=== PATIENT | male | born 1950 | race African-American/Black ===

== ENCOUNTER 2022-08-29 09:03 | Emergency (ER) | payer OTHER ==
[2022-08-29 10:13] LABS: #Eosinphils 0.2 10x3/uL (0.0-0.5); #Monocytes 0.4 10x3/uL (0.0-1.1); #Neutrophils 2.3 10x3/uL (1.5-8.4); %Basophils 0.5 % (0.0-2.0); %Eosinophils 4.4 % (0.0-6.0); %Lymphocytes 31.3 % (18.0-47.0); %Monocytes 9.6 % (0.0-10.0); Hemoglobin 6.4 g/dL (13.5-17.5); Mean Corpuscular HGB CONC 28.6 g/dL (32.0-36.0); Mean Corpuscular Hemoglobin 18.9 pg (27.0-33.0); Mean Corpuscular Volume 66.3 fl (81.2-95.1); Platelet Count 153 10x3/uL (150-450); RBC Distribution Width 18.2 % (11.5-14.5); Red Blood Cell (RBC) Count 3.38 10x6/uL (4.32-5.72); White Blood Cell (WBC) Count 4.3 10x3/uL (3.5-10.5)
[2022-08-29 10:24] LABS: ALT (SGPT) 32 U/L (8-55); AST (SGOT) 25 U/L (5-34); Albumin 3.1 g/dL (3.4-4.8); Alkaline Phosphatase 70 U/L (40-110); Anion Gap 11 mmol/L (10-20); BUN (Urea Nitrogen) 19 mg/dL (8.4-25.7); Bilirubin, Total 0.2 mg/dL (0.2-1.2); Calc. Creatinine Clearance 0 mL/min (70-130); Calcium 8.3 mg/dL (7.8-10.44); Carbon Dioxide 24 mmol/L (23-31); Chloride 108 mmol/L (98-107); Estimated GFR 49; Globulin 4.5 g/dL (2.4-3.5); Glucose 115 mg/dL (83-110); Protein, Total 7.6 g/dL (5.8-8.1); Sodium 139 mmol/L (136-145)
[2022-08-29 10:37] LABS: Microcytosis MODERATE=15-30 cells (100X) (0-5/hpf)
[2022-08-29 10:39] LABS: Hypochromia SLIGHT = 6-15 cells (100X) (0-5/hpf)
[2022-08-29 10:40] LABS: Ovalocytes SLIGHT = 2-5 cells (100X) (0-1/hpf); PTT 25.6 sec (22.0-33.0); Prothrombin Time 10.9 sec (9.5-12.1)
[2022-08-29 10:41] LABS: Macrocytosis SLIGHT = 6-15 cells (100X) (0-5/hpf); Polychromasia SLIGHT = 2-3 cells (100X) (0-2/hpf)
[2022-08-29 10:45] LABS: Large Platelets SLIGHT
[2022-08-29 10:46] LABS: Platelet Morphology Comment Appears Adequate
[2022-08-29 10:49] LABS: Iron 13 ug/dL (65-175); Iron Binding Capacity, Total 451 mcg/dL (261-462)
[2022-08-29 11:29] LABS: SARS-CoV-2 NAA Rapid Test Not Detected (NotDetected)
[2022-08-29 17:47] LABS: Hemoglobin 9.8 g/dL (13.5-17.5)
== END 2022-08-29 17:59 ==
LOC: CSHERS 09:03
DX: D50.9 Iron deficiency anemia, unspecified (principal); I10 Essential (primary) hypertension; E78.5 Hyperlipidemia, unspecified; E11.9 Type 2 diabetes mellitus without complications; Z20.822 Contact with and (suspected) exposure to COVID-19; Z79.899 Other long term (current) drug therapy; Z79.84 Long term (current) use of oral hypoglycemic drugs
CPT/HCPCS: 36430; 71045; 80053; 82274; 82728; 83540; 83550; 83880; 84484; 85025; 85610; 85730; 86850; 86900; 86901; 93005; P9016; U0002